=== PATIENT | male | born 1975 | race Two or more races ===

== ENCOUNTER 2024-03-15 07:57 | Emergency (ER) | payer SELFPAY ==
[~2024-03-15] VITALS: Ht 185.4 cm; Wt 84.0 kg
[2024-03-15 07:57] VITALS: BP 117/82; RESP 16; O2SAT 20
[2024-03-15 08:07] VITALS: PULSE 90
== END 2024-03-15 08:20 | disposition home or self-care (01) ==
LOC: EDBD 07:57 → ER 07:57
DX: F15.90 Other stimulant use, unspecified, uncomplicated (principal); R07.89 Other chest pain; Z98.890 Other specified postprocedural states
CPT/HCPCS: 93005

== ENCOUNTER → 2024-03-15 | Emergency (ER) | payer SELFPAY | END | disposition left against medical advice (07) | LOC: ER 08:05 | DX: R07.89 Other chest pain (principal); R45.851 Suicidal ideations; Z53.21 Procedure and treatment not carried out due to patient leaving prior to being seen by health care provider ==